=== PATIENT | male | born 1945 | race Caucasian/White ===

== ENCOUNTER 2016-08-16 12:58 | Emergency (ER) | payer OTHER ==
[~2016-08-16] VITALS: Ht 185.4 cm; Wt 126.0 kg
[~2016-08-16 12:58] MED LIST: ASPI325T PO; COUM10TA PO; DIGO0.12 PO; FLAXMIS PO; GLUCTAB PO; LISI10 PO; MECL-62 PO; METO25 PO; TAB-TAB PO; TAMS0.4C67 PO; THIA100T PO; WARF7.5T4 PO
[2016-08-16 13:03] VITALS: BP 157/82; PULSE 73; RESP 20; TEMP 98.6; O2SAT 96
[2016-08-16 13:27] VITALS: BP 158/74; PULSE 71; RESP 16; TEMP 98.6; O2SAT 100
[2016-08-16] MEDS ORDERED: SODIUM CHLORIDE 0.9% FLUSH 10 ML FLUSH IVF PRN (13:30)
[2016-08-16 13:40] VITALS: BP 158/74; PULSE 75; RESP 16; O2SAT 97
--- NOTE | 2016-08-16 13:55 | RADRPT ---
EXAM DATE/TIME: 08/16/2016 13:28 [facility] COMPARISON: CHEST SINGLE AP, September 13, 2014, 15:38. INDICATIONS : Cough; CVA like symptoms, slurred speach. MEDICAL HISTORY : Hypertension. Diabetes mellitus type II. Afib. SURGICAL HISTORY : None. ENCOUNTER: Initial ACUITY: 1 day PAIN SCORE: 0/10 LOCATION: Bilateral chest FINDINGS: A single view of the chest demonstrates the lungs to be symmetrically aerated without evidence of mas s, infiltrate or effusion. The cardiomediastinal contours are unremarkable. Osseous structures are intact. CONCLUSION: 1. No acute cardiopulmonary findings. Db Alejandro MD on August 16, 2016 at 13:53 Board Certified Radiologist. This report was verified electronically.
[2016-08-16 13:56] LABS: AUTOMATED NEUTROPHIL # 5.3 TH/MM3 (1.8-7.7); BASOPHIL # 0.1 TH/MM3 (0-0.2); BASOPHIL % 1.1 % (0.0-2.0); EOSINOPHIL # 0.5 TH/MM3 (0-0.4); EOSINOPHIL % 5.4 % (0.0-4.0); HEMO FLAGS DIFF FINAL; LYMPH % 21.7 % (9.0-44.0); LYMPHOCYTE # 1.9 TH/MM3 (1.0-4.8); MEAN CELL VOLUME 91.8 FL (80.0-100.0); MEAN CORPUSCULAR HEMOGLOBIN 31.1 PG (27.0-34.0); MEAN CORPUSCULAR HGB CONC 33.9 % (32.0-36.0); MONO % 11.2 % (0.0-8.0); NEUT % 60.6 % (16.0-70.0); PLATELET COUNT 220 TH/MM3 (150-450); RED BLOOD COUNT 4.25 MIL/MM3 (4.50-5.90); WHITE BLOOD COUNT 8.7 TH/MM3 (4.0-11.0)
--- NOTE | 2016-08-16 14:02 | PD ---
HPI Chief Complaint: Neuro Symptoms/ Deficits Time Seen by Provider: 13:25 Travel History International Travel<30 days: No Contact w/Intl Traveler<30days: No Traveled to known affect area: No History of Present Illness HPI C/O DIZZY AND LIGHTHEADED [facility]....[facility] BECA[facility] PARKINSON'S? its unclear to me the reason for physical therapy however patient states it is because of "parkinson's" at the same time patient states that when he was diagnosed with "parkinson's" it was also the time that he developed left sided facial asymetry and left sided weakness several months ago. 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[employer] PFSH Past Medical History Atrial Fibrillation: Yes Blood Disorders: No Heart Rhythm Problems: Yes (atrial fibulation ) Cancer: No Cardiovascular Problems: Yes (htn/afib/bradycardia) High Cholesterol: Yes Chest Pain: No Congestive Heart Failure: No Diabetes: Yes Diminished Hearing: Yes ([place], [place] earing aids) Endocrine: Yes Genitourinary: Yes (bph) Hypertension: Yes Immune Disorder: No Musculoskeletal: Yes (shoulder / chronic lower back pain) Neurologic: Yes (dizziness /cardiac output) Psychiatric: No Reproductive: No Respiratory: Yes Sleep Apnea: Yes Past Surgical History Oral Surgery: Yes (TONSILLECTOMY) Other Surgery: Yes Social History Alcohol Use: Yes (3-4 COCKTAILS/NIGHT) Tobacco Use: No Substance Use: No Allergies-Medications (Allergen,Severity, Reaction): Coded Allergies: Amlodipine (Verified Allergy, Mild, 08/16/16) Reported Meds & Prescriptions Reported Meds & Active Scripts Active Reported Flax Seed Oil (Flaxseed Oil) 1,000 Mg Capsule 2,000 Mg PO DAILY Metformin (Metformin HCl) 850 Mg Tab 850 Mg PO TIDPC With meals Metoprolol Tartrate 25 Mg Tab 12.5 Mg PO BID Multiple Vitamin 1 Tab 1 Tab PO DAILY Flomax (Tamsulosin HCl) 0.4 Mg Cap 0.4 Mg PO DAILY Warfarin 5 Mg Tab 5 Mg PO MOWEFR @ HS Warfarin 7.5 Mg Tab 7.5 Mg PO SUTUTHSA @ HS Clotrimazole Topical (Clotrimazole) 1% Soln 1 Applic TOPICAL BID Calcium 600 + Vit D Tablet (Calcium Carbonate/Vitamin D3) 1 Each Tablet 1 Tab PO BID Review of Systems Except as stated in HPI: all other systems reviewed are Neg HENT: Positive: Lightheadedness, Other (DIZZINESS, SLURRED SPEECH (IS ALSO OLD) ) Physical Exam Narrative GENERAL: PT IS DOING WELLAND HAS FOREHEAD SPARING WELL. SKIN: Warm and dry. HEAD: Atraumatic. Normocephalic. EYES: Pupils equal and round. No scleral icterus. No injection or drainage. ENT: No nasal bleeding or discharge. Mucous membranes pink and moist. NECK: Trachea midline. No JVD. CARDIOVASCULAR: Regular rate and rhythm. RESPIRATORY: No accessory muscle use. Clear to auscultation. Breath sounds equal bilaterally. GASTROINTESTINAL: Abdomen soft, non-tender, nondistended. Hepatic and splenic margins not palpable. MUSCULOSKELETAL: Extremities without clubbing, cyanosis, or edema. No obvious deformities. NEUROLOGICAL: Awake and alert. No obvious cranial nerve deficits. Motor grossly within normal limits. Five out of 5 muscle strength in the arms and legs. MILD SLURRED SPEECH (PT STATES IS BASELINE) PSYCHIATRIC: Appropriate mood and affect; insight and judgment normal. Data Data Last Documented VS Orders Electrocardiogram (08/16/16 13:25) Prothrombin Time / Inr (Pt) (08/16/16 13:25) Act Partial Throm Time (Ptt) (08/16/16 13:25) Complete Blood Count With Diff (08/16/16 13:25) Comprehensive Metabolic Panel (08/16/16 13:25) Troponin I (08/16/16 13:25) Ct Brain W/O Iv Contrast(Rout) (08/16/16 13:25) Chest, Single Ap (08/16/16 13:25) Ecg Monitoring (08/16/16 13:25) Iv Access Insert/Monitor (08/16/16 13:25) Oximetry (08/16/16 13:25) Blood Glucose (08/16/16 13:25) Sodium Chloride 0.9% Flush (Ns Flush) (08/16/16 13:30) I-Stat Creatinine (08/16/16 13:25) Labs MDM Medical Decision Making Medical Screen Exam Complete: Yes Emergency Medical Condition: Yes Medical Record Reviewed: Yes Interpretation(s) NSR, 77, NO STEMI PATTERN Differential Diagnosis TIA VS WORSENING CVA VS INFECTIOUS PROCESS V ELECTROLYTE DISTURBANCE VS ATYPICAL RI Narrative Course CURRENTLY ELECTROLYTES, AND CBC WERE WNL, INR IS THERAPEUTIC, AND CT SHOWS NO ICH AND CXR IS NEG FOR PNA. WITH PT AT BASELINE AND WITHOUT NEW FINDINGS UNLIKELY THAT A NEW EVENT IS OCCURRING at this time. Diagnosis Primary Impression: DIZZY RESOLVED Disposition: DISCHARGE HOME Condition: Stable Patricio Colindres MD Aug 16, 2016 14:02 Mean Platelet Volume 8.7 FL Neutrophils (%) (Auto) 60.6 % Lymphocytes (%) (Auto) 21.7 % Monocytes (%) (Auto) 11.2 % Eosinophils (%) (Auto) 5.4 % Basophils (%) (Auto) 1.1 % Neutrophils # (Auto) 5.3 TH/MM3 Lymphocytes # (Auto) 1.9 TH/MM3 Monocytes # (Auto) 1.0 TH/MM3 Eosinophils # (Auto) 0.5 TH/MM3 Basophils # (Auto) 0.1 TH/MM3 CBC Comment DIFF FINAL Differential Comment Prothrombin Time 34.1 SEC Prothromb Time International 2.9 RATIO Ratio Activated Partial 34.0 SEC Thromboplast Time Sodium Level 140 MEQ/L Potassium Level 4.2 MEQ/L Chloride Level 105 MEQ/L Carbon Dioxide Level 28.1 MEQ/L Anion Gap 7 MEQ/L Blood Urea Nitrogen 15 MG/DL Creatinine 0.79 MG/DL Estimat Glomerular Filtration 96 ML/MIN Rate Random Glucose 176 MG/DL Calcium Level 8.9 MG/DL Total Bilirubin 0.3 MG/DL Aspartate Amino Transf 14 U/L (AST/SGOT) Alanine Aminotransferase 26 U/L (ALT/SGPT) Alkaline Phosphatase 53 U/L Troponin I LESS THAN 0.02 NG/ML Total Protein 6.5 GM/DL Albumin 3.4 GM/DL [facility] Medical Decision Making Medical Screen Exam Complete: Yes Emergency Medical Condition: Yes Medical Record Reviewed: Yes Interpretation(s) NSR, 77, NO STEMI PATTERN Differential Diagnosis TIA VS WORSENING CVA VS INFECTIOUS PROCESS V ELECTROLYTE DISTURBANCE VS ATYPICAL RI Narrative Course CURRENTLY ELECTROLYTES, AND CBC WERE WNL, INR IS THERAPEUTIC, AND CT SHOWS NO ICH AND CXR IS NEG FOR PNA. WITH PT AT BASELINE AND WITHOUT NEW FINDINGS UNLIKELY THAT A NEW EVENT IS OCCURRING. Diagnosis Primary Impression: DIZZY RESOLVED Disposition: DISCHARGE HOME Condition: Stable Patricio Colindres MD Aug 16, 2016 14:02 UNLIKELY THAT A NEW EVENT IS OCCURRING. Diagnosis Primary Impression: DIZZY RESOLVED Disposition: 01 DISCHARGE HOME Condition: Stable Patricio Colindres MD Aug 16, 2016 14:02
[2016-08-16 14:10] LABS: INTERNATIONAL NORMALIZED RATIO 2.9 RATIO; PROTHROMBIN TIME - PATIENT 34.1 SEC (9.8-11.6)
[2016-08-16 14:17] LABS: ALT (GPT) 26 U/L (12-78); ANION GAP 7 MEQ/L (5-15); AST (GOT) 14 U/L (15-37); BICARBONATE 28.1 MEQ/L (21.0-32.0); BLOOD UREA NITROGEN 15 MG/DL (7-18); CHLORIDE 105 MEQ/L (98-107); GLOMERULAR FILTRATION RATE 96 ML/MIN (>89); POTASSIUM 4.2 MEQ/L (3.5-5.1); SODIUM (NA) 140 MEQ/L (136-145)
[2016-08-16 14:22] LABS: ALKALINE PHOSPHATASE 53 U/L (45-117); TOTAL BILIRUBIN ADULT 0.3 MG/DL (0.2-1.0)
--- NOTE | 2016-08-16 14:22 | RADRPT ---
EXAM DATE/TIME: 08/16/2016 14:11 [facility] COMPARISON: CT BRAIN W/O CONTRAST, March 08, 2014, 18:02. INDICATIONS : Weakness, dizziness RADIATION DOSE: 44.37 CTDIvol (mGy) MEDICAL HISTORY : Hypertension. SURGICAL HISTORY : None. ENCOUNTER: Initial ACUITY: 4 - 6 months PAIN SCALE: 0/10 LOCATION: cranial TECHNIQUE: Multiple contiguous axial images were obtained of the head. Using automated exposure control and adj ustment of the mA and/or kV according to patient size, radiation dose was kept as low as reasonably a chievable to obtain optimal diagnostic quality images. FINDINGS: CEREBRUM: The ventricles are normal for age. No evidence of midline shift, mass lesion, hemorrhage or acute in farction. No extra-axial fluid collections are seen. POSTERIOR FOSSA: The cerebellum and brainstem are intact. The 4th ventricle is midline. The cerebellopontine angle i s unremarkable. EXTRACRANIAL: The visualized portion of the orbits is intact. SKULL: The calvaria is intact. No evidence of skull fracture. CONCLUSION: Normal examination for a patient of this age. No significant change has occurred. Danny Hernandez MD on August 16, 2016 at 14:18 Board Certified Radiologist. This report was verified electronically.
[2016-08-16 14:41] VITALS: BP 172/83; PULSE 67; RESP 16; O2SAT 96
[2016-08-16] MEDS ORDERED: CALC1TAB34 PO (15:25)
[2016-08-16] MEDS ORDERED: CALC600T64 PO (15:26)
[2016-08-16] MEDS ORDERED: CLOTR1%T TOPICAL (15:26)
[2016-08-16] MEDS ORDERED: MULTTAB67 PO (15:34)
[2016-08-16] MEDS ORDERED: WARF-21 PO (15:34)
[2016-08-16] MEDS ORDERED: METO25TA3 PO (15:34)
[2016-08-16] MEDS ORDERED: TAMS5CAP PO (15:34)
[2016-08-16] MEDS ORDERED: TH F1000 PO (15:34)
[2016-08-16] MEDS ORDERED: METF850T PO (15:34)
[2016-08-16] MEDS ORDERED: WARF-23 PO (15:34)
[2016-08-16 15:39] VITALS: BP 169/75
--- NOTE | 2016-08-17 16:35 | EKG ---
Date Performed: 08/16/2016 Time Performed: 13:45:52 PTAGE: 71 years EKG: Sinus rhythm POSSIBLE RIGHT VENTRICULAR CONDUCTION DELAY BORDERLINE ECG PREVIOUS TRACING : 09/13/2014 15.42 Compared to prior tracing no significant change DOCTOR: Kevyn Connor Interpretating Date/Time 08/17/2016 16:34:23
== END 2016-08-16 15:57 | disposition home or self-care (01) ==
LOC: NEPC 12:58
DX: R42 Dizziness and giddiness (principal); I48.91 Unspecified atrial fibrillation; I10 Essential (primary) hypertension; R53.1 Weakness; G20 Parkinson's disease; E11.9 Type 2 diabetes mellitus without complications; H91.93 Unspecified hearing loss, bilateral; E78.00 Pure hypercholesterolemia, unspecified; M54.5 Low back pain; G89.29 Other chronic pain; Z79.01 Long term (current) use of anticoagulants
CPT/HCPCS: 70450; 71010; 80053; 84484; 85025; 85610; 85730; 93005; 99285